=== PATIENT | male | born 1975 | race Caucasian/White ===

== ENCOUNTER 2020-07-08 13:19 | Emergency (ER) | payer OTHER, SELFPAY ==
[2020-07-08 13:25] VITALS: BP 138/80; PULSE 69; RESP 15; TEMP 37.1; O2SAT 99; BMI 27.1
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
--- NOTE | 2020-07-08 15:24 | PC.NURSE ---
Pt has an abrasion on bridge of nose and forhead. Pt has right rib pain,right wrist pain and left shoulder pain
[2020-07-08] MEDS: KETOROLAC 60 MG/2 ML VIAL 30 MG IM (15:51)
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
[2020-07-08 16:30] VITALS: BP 132/72; PULSE 66; O2SAT 100
== END 2020-07-08 16:30 | disposition home or self-care (01) ==
PROVIDERS: Emergency Provider Physician Assistant
DX: S43.102A Unspecified dislocation of left acromioclavicular joint, initial encounter (principal); S20.211A Contusion of right front wall of thorax, initial encounter; V18.2XXA Unspecified pedal cyclist injured in noncollision transport accident in nontraffic accident, initial encounter
CPT/HCPCS: 71101; 73030; 96372; 99283; 99284; STOP; J1885